=== PATIENT | female | born 1970 | race Caucasian/White ===

== ENCOUNTER 2021-01-15 08:08 | Outpatient (CLI) | payer BC, SELFPAY ==
--- NOTE | ~2021-01-15 | US_ITS ---
US renal BI 01/15/2021 08:31 Procedure: Realtime transabdominal ultrasound of the kidneys and bladder. Indication: Low back pain and proteinuria Comparison: No prior studies for comparison. Findings: Renal echotexture is normal bilaterally without hydronephrosis, contour deforming mass or r enal calculus. The right kidney measures 9.9 cm and left kidney measures 9.9 cm. Bladder within norm al limits. Impression: 1: Unremarkable renal ultrasound. No stones, masses or hydronephrosis. Reviewed, dictated and finalized at location A. Impression: 1: Unremarkable renal ultrasound. No stones, masses or hydronephrosis.
--- NOTE | ~2021-01-15 | XR_ITS ---
EXAMINATION: XR shoulder RT min 2V, XR humerus RT DATE: 01/15/2021 08:43 INDICATION: Chronic right shoulder and humerus pain. TECHNIQUE: 1. AP internally and externally rotated, AP oblique externally rotated and axillary views of the righ t shoulder were obtained. 2. AP and lateral views of the right humerus were obtained. COMPARISON: None FINDINGS: Normal alignment at the right shoulder and elbow. No fracture.Mild glenohumeral and moderate acromio clavicular osteoarthritis. Mild osteoarthritis at the right elbow. Soft tissues are unremarkable. Vis ualized portions of the lungs are clear. IMPRESSION: Moderate right acromioclavicular and mild right glenohumeral and elbow osteoarthritis. Reviewed, dictated and finalized at location A. IMPRESSION: Moderate right acromioclavicular and mild right glenohumeral and elbow osteoart hritis.
== END 2021-01-15 08:09 | disposition home or self-care (01) ==
PROVIDERS: PCP Family Medicine; Visit Provider Nurse Practitioner Family
DX: M54.5 Low back pain (principal); R80.9 Proteinuria, unspecified; Z80.51 Family history of malignant neoplasm of kidney; M19.011 Primary osteoarthritis, right shoulder; M19.021 Primary osteoarthritis, right elbow
CPT/HCPCS: 73030; 73060; 76775

== ENCOUNTER 2021-09-08 14:43 | Emergency (ER) | payer BC, SELFPAY ==
--- NOTE | ~2021-09-08 | XR_ITS ---
EXAMINATION: XR hand LT min 3V, XR wrist LT min 3V EXAM DATE: 09/08/2021 15:15 INDICATION: left hand and wrist pain after a fall yesterday . Initial encounter. TECHNIQUE: Left hand frontal, lateral and oblique projections obtained and reviewed. Left wrist fron galina, frontal with ulnar deviation, oblique and lateral projections obtained and reviewed. There is n o prior study for comparison. FINDINGS: There is acute left radial distal metaphyseal closed posttraumatic fracture identified dors ally extending into the radiocarpal joint. No displacement. Left wrist scapholunate joint space is ma intained. There is intact orthopedic plate, supporting screws in the 3rd and 4th metacarpal bones. Th ere is ulnar minus variance. Phalanges are unremarkable. There is ulnar minus variance. IMPRESSION: Acute left distal radial metaphyseal intra-articular fracture. above. Reviewed, dictated and finalized at location G. DETECTOR OPERATOR IMPRESSION: Acute left distal radial metaphyseal intra-articular fracture. abo ve.
[2021-09-08 15:01] VITALS: BP 131/80; PULSE 67; RESP 18; TEMP 36.4; O2SAT 99
--- NOTE | 2021-09-08 15:03 | ED.GENADULT ---
HPI - General Adult General Chief complaint: Extremity Injury, Upper Stated complaint: lt wrist injury Time Seen by Provider: 09/08/21 15:03 Source: patient Mode of arrival: ambulatory Limitations: no limitations History of Present Illness HPI narrative: 51-year-old female patient presents to the [facility] with complaints of left wrist pain after falling on the ice yesterday. Patient states she has fractured 2 of her metacarpals in 2019. Patient has been wearing a wrist splint and took some ibuprofen for the pain. Denies numbness or tingling to the fingertips Related Data Allergies Allergy/AdvReac Type Severity Reaction Status Date / Time No Known Allergies Allergy Verified 09/08/21 15:08 Review of Systems Review of Systems: CONSTITUTIONAL: Denies fever, chills, or sweats. EYES: Denies visual changes, redness, or discharge. ENT: Denies rhinorrhea, congestion, sore throat, or otalgia. CARDIOVASCULAR: Denies chest pain, palpitations, or edema. RESPIRATORY: Denies cough or dyspnea. GASTROINTESTINAL: Denies abdominal pain, nausea, vomiting, or diarrhea. GENITOURINARY: Denies dysuria or hematuria. SKIN: Denies rash or itching. MUSCULOSKELETAL: Denies back pain, joint pain, or myalgia. Positive left wrist pain NEUROLOGIC: Denies headache, numbness, or weakness. PSYCHIATRIC: Denies anxiety or depression. [facility] Past Medical History Medical History BMI 35.0-35.9,adult BMI 37.0-37.9, adult Hypothyroid Surgical History Surgical History H/O hand surgery Hx of SHAMAR Family History Family History Father Diabetes mellitus Renal cell cancer Mother Blood clot in vein Sibling No problems noted. 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 There is no relevant family history pertinent to the presenting complaint. Exam Narrative: GENERAL: Well-appearing, well-nourished, and in no acute distress. HEAD: Normocephalic, atraumatic. EYES: PERRLA and EOMI. ENT: Nares clear, no rhinorrhea or epistaxis. Mucous membranes moist. NECK: Supple. No lymphadenopathy CHEST: Clear to auscultation. No respiratory distress. HEART: Regular rate and rhythm. No murmur heard. Normal peripheral pulses. ABDOMEN: Soft, nontender, nondistended, normal active bowel sounds. EXTREMITIES: The L wrist is without obvious asymmetry or deformity when compared to the R wrist. No surface trauma, open wounds, swelling, or obvious deformity. No overlying erythema or warmth. No bony crepitus or focal area of TTP. No scaphoid fullness or tenderness to direct palpation or axial load. Pain with flex/not as much pain with extension, no pain noted during ulnar/radial deviation. Motor/sensory function of ulnar, radial, median nerves intact. Ulnar and radial pulses intact. Negaitve Phalen's/Tinel's sign. Negative Bethany test.. SKIN: Warm, dry, no rash. NEURO: No focal deficits. Alert and oriented x3. Course Course Level of Care: Express Care Visit Reevaluation(s) Reevaluation #1: Reevaluated patient notified her that the x-ray does show a distal radial fracture to the left wrist. Our plan of care is to go ahead and splint her today. Patient has seen Dr. Chaevs in the past for her hand surgery and states she will try and call him for follow
== END 2021-09-08 15:40 | disposition home or self-care (01) ==
PROVIDERS: Emergency Provider Nurse Practitioner Family; PCP Family Medicine
DX: S52.572A Other intraarticular fracture of lower end of left radius, initial encounter for closed fracture (principal); W00.0XXA Fall on same level due to ice and snow, initial encounter; E03.9 Hypothyroidism, unspecified
CPT/HCPCS: 29125; 73110; 73130; 99214; G0463

== ENCOUNTER → 2022-09-19 08:33 | Outpatient (CLI) | payer BC, SELFPAY ==
--- NOTE | ~2022-09-19 | XR_ITS ---
EXAMINATION: XR lumbar spine 2-3V DATE: 09/19/2022 08:56 INDICATION: Low back pain TECHNIQUE: Anteroposterior and lateral views of the lumbar spine, and cone-down lateral view of the l umbosacral junction were obtained. COMPARISON: None. FINDINGS: No fracture, dislocation, or subluxation. The vertebral body heights an intervertebral disc space are maintained. Small degenerative osteophytes project from the anterior endplates of multiple vertebral bodies. There is moderate facet joint osteoarthritis of the mid and lower lumbar spine. IMPRESSION: 1. Mild lumbar spondylosis without acute findings. Reviewed, dictated and finalized at location B. FIC ADMINISTRATOR
== END ==
PROVIDERS: PCP Family Medicine; Visit Provider Physician Assistant Medical
DX: M54.50 Low back pain, unspecified (principal); M43.06 Spondylolysis, lumbar region
CPT/HCPCS: 72100

== ENCOUNTER → 2022-11-13 07:27 | Outpatient (CLI) | payer BC, SELFPAY ==
--- NOTE | ~2022-11-13 | XR_ITS ---
Left Knee Technique: AP, lateral, and sunrise views were obtained. Clinical History: Pain Findings: No fracture or dislocation is seen. Osseous alignment is anatomic. Joint spaces are preserv ed without degenerative or erosive change. There is mild enthesopathic change at the quadriceps tendo n insertion and proximal patellar tendon. No joint effusion is seen. Impression: No fracture or dislocation. Mild enthesopathic changes, as above. Reviewed, dictated and finalized at location M. Impression: No fracture or dislocation. Mild enthesopathic changes, as above.
== END ==
PROVIDERS: PCP Family Medicine; Visit Provider Physician Assistant Medical
DX: M25.562 Pain in left knee (principal)
CPT/HCPCS: 73562

== ENCOUNTER → 2023-01-19 13:10 | Outpatient (CLI) | payer BC, SELFPAY ==
--- NOTE | ~2023-01-19 | DEXA_ITS ---
Bone Density Report Name: JACQUELINE MAHONEY Age: 52 Sex: Female Ethnicity: White Date of : 1970 Indication: screening for osteoporosis; prior fracture Referring Provider: Crissy Wilson Study: Bone densitometry was performed. Exam Date: January 19, 2023 Accession number: [id number] Bone Density: Region BMD T-score Z-score Classification AP Spine (L1-L4) 1.173 1.1 2.0 Normal Femoral Neck (Left) 0.895 0.4 1.3 Normal Total Hip (Left) 1.068 1.0 1.6 Normal Femoral Neck (Right) 0.821 -0.3 0.6 Normal Total Hip (Right) 1.023 0.7 1.2 Normal Total Hip Mean 1.046 0.9 1.4 Normal World Health Organization criteria for BMD impression classify patients as: Normal (T-score at or above -1.0), Osteopenia (T-score between -1.0 and -2.5), or Osteoporosis (T-score at or below -2.5). 10-year Fracture Risk: FRAX not reported because: Premenopausal woman All T-scores for Spine Total, Hip Total, Femoral Neck at or above -1.0 Clinical Information Provided by Patient: Has had a low trauma fracture Has used the following medications: Vitamin D, Levothyroxine Patient maximum height was 64.6 No regular weight bearing exercise Drinks caffeinated beverages Onset of menses at age 13 Premenopausal Number of children 0 Impression: The patient's bone mass is within expected range for age, gender and ethnicity. The patient has risk factors, including: previous fracture. Discussion: BONE DENSITY IS WITHIN EXPECTED LIMITS FOR AGE, SEX AND RACE. Bone density is within expected limits for age, sex and race at all sites measured. The patient should follow a healthful lifestyle (good nutrition with adequate calcium and vitamin D, and appropriate weight-bearing exercise). Follow-Up: Consider repeating this study in 5 years or sooner if there is some new clinical indication. Reported by: KARISSA on 01/19/2023 1:52:00 PM. Reviewed, dictated and finalized at location AMike VIDAL
--- NOTE | ~2023-01-19 | MM_ITS ---
EXAMINATION: MM screening radha BI w aileen HISTORY: Screening mammogram TECHNIQUE: Craniocaudal and mediolateral oblique 3-D tomosynthesis images were obtained and synthetic 2-D images were generated. CAD analysis was submitted and interpreted. COMPARISON: No prior mammogram is available for comparison at this institution. BREAST PARENCHYMAL COMPOSITION: There are scattered areas of fibroglandular density. FINDINGS: Multiple bilateral mammographic masses are suggested. Bilateral diagnostic mammography and breast ultrasound examination are recommended. IMPRESSION: 1. Multiple bilateral breast masses 2. Bilateral diagnostic mammogram and breast ultrasound examination are recommended BI-RADS Category 0: Incomplete: Needs additional imaging evaluation. Reviewed, dictated and finalized at location A. IMPRESSION: 1. Multiple bilateral breast masses 2. Bilateral diagnostic mammogram and breast ultrasound examination are recomme nded BI-RADS Category 0: Incomplete: Needs additional imaging evaluation.
== END ==
PROVIDERS: PCP Family Medicine; Visit Provider Physician Assistant Medical
DX: Z12.31 Encounter for screening mammogram for malignant neoplasm of breast (principal); Z78.0 Asymptomatic menopausal state; R92.8 Other abnormal and inconclusive findings on diagnostic imaging of breast
CPT/HCPCS: 77063; 77067; 77080

== ENCOUNTER → 2023-02-20 08:15 | Outpatient (CLI) | payer BC, SELFPAY ==
--- NOTE | ~2023-02-20 | MMUS_ITS ---
EXAMINATION: MM diagnostic radha BI w aileen, US breast BI complete HISTORY: Follow-up bilateral breast nodules TECHNIQUE: Additional 3-D tomosynthesis images of the breasts were performed and synthetic 2-D images were generated. CAD analysis was submitted and interpreted. High resolution bilateral complete breas t ultrasound was performed. COMPARISON: 01/19/2023 BREAST PARENCHYMAL COMPOSITION: Breast composed of scattered areas of fibroglandular density FINDINGS: MAMMOGRAPHIC FINDINGS: There are small persistent bilateral breast nodules which are obscured by fibroglandular tissue. ULTRASOUND: Complete bilateral US of all 4 quadrants of the breasts and retroareolar region was reviewed. Right breast: At 3:00, 4 cm from the nipple there is an oval hypoechoic mass measuring 5 mm, likely b enign. At 7:00, 7 cm from the nipple there is an oval 4 mm hypoechoic mass with low-level internal ec hoes, likely benign. At 9:00, 7 cm from the nipple there is a 4 mm oval hypoechoic mass, likely benig n complicated cyst. Left breast: At 2:00, 4 cm from the nipple, there is a 5 mm intramammary lymph node. At 3:00, 4 cm fr om the nipple, there is a small oval hypoechoic 5 mm mass, also likely intramammary lymph node. At 6: 00, 5 cm from the nipple there is a 3 mm oval hypoechoic mass, likely benign. IMPRESSION: 1. Probable benign bilateral breast masses described above. 2. Recommend 6 month follow-up diagnostic bilateral mammogram and Limited ultrasound BI-RADS category 3, probably benign findings. Reviewed, dictated and finalized at location A. IMPRESSION: 1. Probable benign bilateral breast masses described above. 2. Recommend 6 month follow-up diagnostic bilateral mammogram and Limited ultra sound BI-RADS category 3, probably benign findings.
== END ==
PROVIDERS: PCP Family Medicine; Visit Provider Physician Assistant Medical
DX: N63.10 Unspecified lump in the right breast, unspecified quadrant (principal); N63.20 Unspecified lump in the left breast, unspecified quadrant; R92.8 Other abnormal and inconclusive findings on diagnostic imaging of breast
CPT/HCPCS: 76641; 77062; 77066; G0279

== ENCOUNTER 2023-10-07 08:49 | Outpatient (CLI) | payer OTHER, SELFPAY ==
--- NOTE | ~2023-10-07 | MMUS_ITS ---
EXAMINATION: MM diagnostic radha BI w aileen, US breast BI limited HISTORY: Six-month follow-up of probable benign bilateral breast masses TECHNIQUE: Full field and spot 3-D tomosynthesis images of both breasts were performed and synthetic 2-D images were generated. CAD analysis was submitted and interpreted. High resolution targeted bilat eral breast ultrasound examination dated areas of previous breast masses on 02/20/2023 bilateral compl ete breast ultrasound examination was performed. COMPARISON: 02/20/2023 bilateral diagnostic mammogram and bilateral complete breast ultrasound examina tion 01/19/2023 bilateral screening mammogram BREAST PARENCHYMAL COMPOSITION: There are scattered areas of fibroglandular density. FINDINGS: MAMMOGRAPHIC FINDINGS: Bilateral subcentimeter circumscribed benign-appearing breast masses appear stable since 01/19/2023. No interval suspicious mass, architectural distortion, malignant calcification, skin thickening or re traction or significant new or developing density of either breast is detected. ULTRASOUND: Right breast: 3:00 4 cm from nipple: Parallel circumscribed hypoechoic 1.6 x 3.2 x 4.5 mm hypoechoic lesion without internal vascularity or posterior shadowing, benign in appearance 7:00 7 cm from nipple: Parallel circumscribed hypoechoic approximately 3.9 x 3.4 x 5 mm solid lesion with fatty hilum, likely a benign intramammary lymph node, without suspicious shadowing or vascularit y 9:00 7 cm from nipple: Parallel circumscribed 2 x 1.4 x 3.4 mm sonolucency without internal vasculari ty, likely a small cyst Left breast: 2:00 4 cm from nipple: Benign-appearing lymph node measuring 5.3 x 3.5 x 5.9 mm, without internal vas cularity or posterior shadowing 3:00 4 cm from nipple: Parallel circumscribed 2.2 x 3.6 x 4.4 mm hypoechoic lesion without internal v ascularity or posterior shadowing, benign in appearance 6:00 5 cm from nipple: Parallel circumscribed hypoechoic 3 mm lesion without internal vascularity or posterior shadowing Left axilla: Superficial parallel circumscribed hypoechoic subcutaneous lesion measuring 2.7 x 8.1 x 7.5 mm, with through transmission posterior enhancement, likely a benign lesion possibly a complicate d sebaceous cyst. IMPRESSION: 1. Multiple bilateral stable subcentimeter benign masses; no evidence of malignancy 2. Routine annual mammographic screening is recommended. BI-RADS Category 2: Benign finding(s). Reviewed, dictated and finalized at location A. LING MANAGER IMPRESSION: 1. Multiple bilateral stable subcentimeter benign masses; no evidence of malign lt 2. Routine annual mammographic screening is recommended. BI-RADS Category 2: Benign finding(s). IMPRESSION: 1. Multiple bilateral stable subcentimeter benign masses; no evidence of malign tl 2. Routine annual mammographic screening is recommended. BI-RADS Category 2: Benign finding(s).
== END 2023-10-07 08:50 ==
LOC: MICIMG 08:50
PROVIDERS: PCP Physician Assistant Medical; Visit Provider Physician Assistant Medical
DX: N63.10 Unspecified lump in the right breast, unspecified quadrant (principal); N63.20 Unspecified lump in the left breast, unspecified quadrant; R92.8 Other abnormal and inconclusive findings on diagnostic imaging of breast
CPT/HCPCS: 76642; 77062; 77066; G0279

== ENCOUNTER 2025-02-21 11:16 | Outpatient (CLI) | payer OTHER, SELFPAY ==
--- NOTE | ~2025-02-21 | MM_ITS ---
EXAMINATION: MM screening radha BI w aileen HISTORY: Screening TECHNIQUE: Craniocaudal and mediolateral oblique 3-D tomosynthesis images were obtained and synthetic 2-D images were generated. CAD analysis was submitted and interpreted. COMPARISON: Comparison to multiple prior studies sequentially, with oldest reviewed study dated 06/04. BREAST PARENCHYMAL COMPOSITION: There are scattered areas of fibroglandular density. FINDINGS: There is no evidence of suspicious mass, calcification, or architectural distortion to sug gest malignancy in either breast. IMPRESSION: 1. No mammographic evidence of malignancy. 2. Recommend routine screening mammography in one year. BI-RADS Category 1: Negative Reviewed, dictated and finalized at location B.
== END 2025-02-21 11:17 | disposition home or self-care (01) ==
PROVIDERS: PCP Physician Assistant Medical; Visit Provider Family Medicine
DX: Z12.31 Encounter for screening mammogram for malignant neoplasm of breast (principal)
CPT/HCPCS: 77063; 77067